=== PATIENT | male | born 1945 | race Caucasian/White ===

== ENCOUNTER 2017-03-24 11:10 | Inpatient (IN) | payer OTHER ==
[~2017-03-24] VITALS: Ht 180.3 cm; Wt 120.7 kg
[2017-03-24 11:57] LABS: EOSINOPHIL (%) 1.7 % (0-5); EOSINOPHIL COUNT 0.2 K/uL (0-0.3); HEMATOCRIT 36.8 % (38.0-50.0); IMMATURE GRANULOCYTE (%) 0.5 % (0.0-0.7); IMMATURE GRANULOCYTE COUNT 0.1 K/uL; INSTRUMENT ABS NEUTROPHIL CT 7.8 K/uL; LYMPHOCYTE COUNT 2.2 K/uL (1.0-2.8); MCHC 33.7 G/DL (30.0-36.0); MCV 89.1 FL (86-99); MEAN PLAT.VOLUME 10.3 uM^3 (9.0-12.4); MONOCYTE (%) 7.6 % (3-12); MONOCYTE COUNT 0.8 K/uL (0-0.8); NEUTROPHIL (%) 69.7 % (45-76); NEUTROPHIL COUNT 7.8 K/uL (1.8-6.4); PLATELET COUNT 266 K/uL (156-360); RBC DIS.WIDTH-CV 12.6 % (11.8-14.6); RBC DIS.WIDTH-SD 41.1 % (39-53); RED BLOOD COUNT 4.13 M/uL (4.00-5.50); WHITE BLOOD COUNT 11.1 K/uL (4.1-10.2)
[2017-03-24 12:04] LABS: INTER. NORMALIZED RATIO 1.1; PROTHROMBIN TIME 11.7 SEC (10.2-12.9)
[2017-03-24 12:06] LABS: PTT 29.2 SEC (25-37)
[2017-03-24 12:08] LABS: CHLORIDE 107 mEq/L (99-109); POTASSIUM 4.2 mEq/L (3.7-5.4); SODIUM 139 mEq/L (136-147)
[2017-03-24 12:10] LABS: GLUCOSE 107 mg/dL (70-99)
[2017-03-24 12:11] LABS: ANION GAP 9 MEQ/L (2-14)
[2017-03-24 12:12] LABS: TOTAL BILIRUBIN 0.6 mg/dL (0.0-1.0)
[2017-03-24 12:14] LABS: ALKALINE PHOSPHATASE 59 IU/L (3-129); GFR ESTIMATE (CALCULATED) > 59 mL/min/
[2017-03-24 12:15] LABS: UREA NITROGEN (BUN) 16 mg/dL (9-23)
[2017-03-24 12:16] LABS: DIRECT BILIRUBIN 0.2 mg/dL (0.0-0.3)
[2017-03-24 12:17] LABS: LIPASE 9 U/L (1.0-51.0); TROP-I INTERPRETATION NEGATIVE; TROPONIN-I < 0.01 ng/mL (0.0-0.30)
[2017-03-24] MEDS ORDERED: GLUCOSAMINE-CH1 EA27 PO (17:26)
[2017-03-24] MEDS ORDERED: PRINIVIL20 MG PO (17:26)
[2017-03-24] MEDS ORDERED: PRAVACHOL20 MG PO (17:29)
[2017-03-24 23:46] VITALS: BP 142/68
[2017-03-25 04:10] VITALS: BP 156/81
[2017-03-25 06:14] LABS: ANION GAP 5 MEQ/L (2-14); CHLORIDE 108 MEQ/L (99-109); GFR ESTIMATE (CALCULATED) > 59 mL/min/; GLUCOSE 122 mg/dL (70-99); POTASSIUM 4.4 MEQ/L (3.7-5.4); SAMPLE HEMOLYSIS CHECK 0; SAMPLE ICTERIC CHECK 0; SAMPLE LIPEMIA CHECK 0; SODIUM 139 MEQ/L (136-147); UREA NITROGEN (BUN) 12 mg/dL (9-23)
[2017-03-25 06:45] LABS: EOSINOPHIL (%) 1.8 % (0-5); EOSINOPHIL COUNT 0.2 K/uL (0-0.3); IMMATURE GRANULOCYTE (%) 0.4 % (0.0-0.7); IMMATURE GRANULOCYTE COUNT 0.1 K/uL; INSTRUMENT ABS NEUTROPHIL CT 8.4 K/uL; LYMPHOCYTE COUNT 2.2 K/uL (1.0-2.8); MCH 30.5 PG (29.0-34.0); MCHC 33.6 G/DL (30.0-36.0); MCV 90.9 FL (86-99); MEAN PLAT.VOLUME 10.6 uM^3 (9.0-12.4); MONOCYTE (%) 7.7 % (3-12); MONOCYTE COUNT 0.9 K/uL (0-0.8); NEUTROPHIL (%) 70.9 % (45-76); NEUTROPHIL COUNT 8.4 K/uL (1.8-6.4); PLATELET COUNT 218 K/uL (156-360); RBC DIS.WIDTH-CV 12.9 % (11.8-14.6); RBC DIS.WIDTH-SD 42.4 % (39-53); WHITE BLOOD COUNT 11.8 K/uL (4.1-10.2)
[2017-03-25 06:54] LABS: RED BLOOD COUNT 3.08 M/uL (4.00-5.50)
[2017-03-25 07:38] VITALS: BP 153/67
[2017-03-25 12:13] VITALS: BP 165/78
[2017-03-25 12:40] VITALS: BP 144/82
[2017-03-25 12:46] LABS: EOSINOPHIL (%) 1.3 % (0-5); EOSINOPHIL COUNT 0.2 K/uL (0-0.3); HEMATOCRIT 29.2 % (38.0-50.0); IMMATURE GRANULOCYTE (%) 0.4 % (0.0-0.7); IMMATURE GRANULOCYTE COUNT 0.1 K/uL; INSTRUMENT ABS NEUTROPHIL CT 8.4 K/uL; LYMPHOCYTE COUNT 2.1 K/uL (1.0-2.8); MCH 30.2 PG (29.0-34.0); MCHC 33.6 G/DL (30.0-36.0); MCV 90.1 FL (86-99); MEAN PLAT.VOLUME 10.1 uM^3 (9.0-12.4); MONOCYTE (%) 7.5 % (3-12); MONOCYTE COUNT 0.9 K/uL (0-0.8); NEUTROPHIL (%) 72.5 % (45-76); NEUTROPHIL COUNT 8.4 K/uL (1.8-6.4); PLATELET COUNT 232 K/uL (156-360); RBC DIS.WIDTH-CV 12.8 % (11.8-14.6); RBC DIS.WIDTH-SD 42.3 % (39-53); RED BLOOD COUNT 3.24 M/uL (4.00-5.50); WHITE BLOOD COUNT 11.6 K/uL (4.1-10.2)
[2017-03-25 15:36] VITALS: BP 143/69
[2017-03-25 18:11] LABS: HEMATOCRIT 29.7 % (38.0-50.0); MCV 90.3 FL (86-99)
[2017-03-25 20:55] VITALS: BP 159/70
== END 2017-03-25 22:13 | disposition short-term general hospital (02) | DRG 379 ==
LOC: EME 11:10 → EDOF 15:50 → 5EAST 15:50 → ENRESERV 15:51 → 5EAST 17:42
PROVIDERS: Emergency Medicine; Family Medicine
DX: K92.1 Melena (principal); R19.09 Other intra-abdominal and pelvic swelling, mass and lump; I10 Essential (primary) hypertension; D64.9 Anemia, unspecified; E66.9 Obesity, unspecified; E78.5 Hyperlipidemia, unspecified; I35.0 Nonrheumatic aortic (valve) stenosis; Z87.891 Personal history of nicotine dependence; Z68.37 Body mass index [BMI] 37.0-37.9, adult; R55 Syncope and collapse
CPT/HCPCS: 74177; 80048; 80076; 83605; 83690; 83880; 84484; 85014; 85018; 85025; 85025 91; 85610; 85730; 86900; 86901; 93005; 93306; 99281; 99285; J0500; J2270; J7040; J7042; S0028

== ENCOUNTER 2017-04-16 15:20 | Emergency (ER) | payer OTHER ==
[~2017-04-16] VITALS: Ht 180.3 cm; Wt 110.3 kg
[~2017-04-16 15:20] MED LIST: GLUCOSAMINE-CH1 EA27 PO; PRAVACHOL20 MG PO; PRINIVIL20 MG PO
[2017-04-16 16:23] LABS: HEMATOCRIT 28.3 % (38.0-50.0); MCH 27.8 PG (29.0-34.0); MCHC 32.9 G/DL (30.0-36.0); MEAN PLAT.VOLUME 10.9 uM^3 (9.0-12.4); RBC DIS.WIDTH-CV 14.3 % (11.8-14.6); RBC DIS.WIDTH-SD 44.1 % (39-53); RED BLOOD COUNT 3.35 M/uL (4.00-5.50); WHITE BLOOD COUNT 28.3 K/uL (4.1-10.2)
[2017-04-16 16:24] LABS: CHLORIDE 97 mEq/L (99-109); MCV 84.5 FL (86-99); PLATELET COUNT 340 K/uL (156-360); POTASSIUM 4.1 mEq/L (3.7-5.4); SODIUM 130 mEq/L (136-147)
[2017-04-16 16:26] LABS: GLUCOSE 118 mg/dL (70-99)
[2017-04-16 16:28] LABS: ANION GAP 13 MEQ/L (2-14)
[2017-04-16 16:30] LABS: ALKALINE PHOSPHATASE 67 IU/L (3-129); GFR ESTIMATE (CALCULATED) > 59 mL/min/
[2017-04-16 16:31] LABS: UREA NITROGEN (BUN) 24 mg/dL (9-23)
[2017-04-16 16:35] LABS: INTER. NORMALIZED RATIO 1.5; PROTHROMBIN TIME 16.9 SEC (10.2-12.9)
[2017-04-16 16:38] LABS: PTT 27.9 SEC (25-37)
[2017-04-16 16:39] LABS: TROP-I INTERPRETATION NEGATIVE; TROPONIN-I 0.03 ng/mL (0.0-0.30)
[2017-04-16 20:56] VITALS: BP 120/65
== END 2017-04-16 20:57 | disposition short-term general hospital (02) ==
LOC: EME 15:20
PROVIDERS: Emergency Medicine
DX: I26.92 Saddle embolus of pulmonary artery without acute cor pulmonale (principal); J90 Pleural effusion, not elsewhere classified; R09.02 Hypoxemia; Z95.1 Presence of aortocoronary bypass graft; I10 Essential (primary) hypertension; Z95.2 Presence of prosthetic heart valve; C18.9 Malignant neoplasm of colon, unspecified
CPT/HCPCS: 71010; 71275; 80053; 83605; 83880; 84484; 85027; 85610; 85730; 87040; 93005; 99281; 99285; J0692; J7030; J7050

== ENCOUNTER 2017-07-14 09:23 | Emergency (ER) | payer OTHER ==
[~2017-07-14] VITALS: Ht 182.9 cm; Wt 101.7 kg
[~2017-07-14 09:23] MED LIST changes: +BISAC-EVAC10 MG PR; +COLACE100 MG PO; +ELIQUIS5 MG PO; +HYDROCODON-ACE1 EAC7 PO; +LASIX20 MG PO; +METOPROLOL TART25 MG PO; +MICRO-K10 ME2 PO; +PRADAXA110 MG PO
[2017-07-14 10:17] LABS: HEMATOCRIT 37.9 % (38.0-50.0); MCH 24.5 PG (29.0-34.0); MCHC 31.4 G/DL (30.0-36.0); MEAN PLAT.VOLUME 10.8 uM^3 (9.0-12.4); PLATELET COUNT 295 K/uL (156-360); RBC DIS.WIDTH-CV 17.6 % (11.8-14.6); RBC DIS.WIDTH-SD 48.3 % (39-53); RED BLOOD COUNT 4.86 M/uL (4.00-5.50); WHITE BLOOD COUNT 9.1 K/uL (4.1-10.2)
[2017-07-14 10:27] LABS: CHLORIDE 101 mEq/L (99-109); POTASSIUM 4.2 mEq/L (3.7-5.4); SODIUM 135 mEq/L (136-147)
[2017-07-14 10:29] LABS: GLUCOSE 126 mg/dL (70-99)
[2017-07-14 10:31] LABS: ANION GAP 15 MEQ/L (2-14); TOTAL BILIRUBIN 0.5 mg/dL (0.0-1.0)
[2017-07-14 10:33] LABS: ALKALINE PHOSPHATASE 72 IU/L (3-129); GFR ESTIMATE (CALCULATED) > 59 mL/min/
[2017-07-14 10:34] LABS: UREA NITROGEN (BUN) 21 mg/dL (9-23)
[2017-07-14 10:36] LABS: LIPASE 15 U/L (1.0-51.0)
[2017-07-14] MEDS ORDERED: SYSTANE BALANCE10 ML BOTH EYES (13:33)
[2017-07-14] MEDS ORDERED: DOLOTRANZ 2.5%1 EACH TP (13:33)
[2017-07-14] MEDS ORDERED: CITRATE OF MAG296 ML PO (13:34)
[2017-07-14] MEDS ORDERED: MIRALAX255 GM PO (13:34)
[2017-07-14 16:02] VITALS: BP 142/71
== END 2017-07-14 16:04 | disposition short-term general hospital (02) ==
LOC: EME 09:23
PROVIDERS: Emergency Medicine
DX: K56.609 Unspecified intestinal obstruction, unspecified as to partial versus complete obstruction (principal); C18.9 Malignant neoplasm of colon, unspecified; Z95.1 Presence of aortocoronary bypass graft; Z95.2 Presence of prosthetic heart valve; Z86.711 Personal history of pulmonary embolism; Z79.01 Long term (current) use of anticoagulants; Z92.21 Personal history of antineoplastic chemotherapy; I44.7 Left bundle-branch block, unspecified; J90 Pleural effusion, not elsewhere classified; I10 Essential (primary) hypertension; E78.5 Hyperlipidemia, unspecified; E66.9 Obesity, unspecified; Z68.30 Body mass index [BMI] 30.0-30.9, adult; Z80.1 Family history of malignant neoplasm of trachea, bronchus and lung; Z87.891 Personal history of nicotine dependence
CPT/HCPCS: 71010; 74177; 80053; 81003; 83690; 85027; 93005; 99281; 99285; J2270; J2405; J7030